=== PATIENT | male | born 1935 | race Caucasian/White ===

== ENCOUNTER 2018-11-09 12:26 | Inpatient (IN) ==
[2018-11-09 13:44] LABS: Basophils # (Auto) 0 K/mcL (0.0-0.3); Basophils % (Auto) 0.1 % (0.0-2.0); Eosinophils # (Auto) 0 K/mcL (0.0-0.7); Eosinophils % (Auto) 0 % (0.0-7.0); Granulocytes % (Auto) 75.1 % (38.0-78.0); Lymphocytes # (Auto) 5.8 K/mcL (1.5-4.8); Lymphocytes % (Auto) 21.3 % (15.5-49.0); Mean Cell Volume 99.1 fL (80.0-100.0); Mean Corpuscular HGB Conc 32.7 g/dL (31.0-36.0); Monocytes % (Auto) 3.5 % (1.0-12.0); Platelet Count 293 K/mcL (140-440); RBC 3.32 M/mcL (4.50-5.90); Red Cell Distribution Width 12.4 % (11.5-14.5)
[2018-11-09 14:02] LABS: ALT/SGPT 39 U/l (0-40); Albumin 3.6 gm/dL (3.2-5.2); Albumin/Globulin Ratio 1.5 (1.0-2.3); Alkaline Phosphatase 55 U/L (39-117); Blood Urea Nitrogen 9 mg/dl (8-23)
[2018-11-09] MEDS ORDERED: 0.9 % SODIUM CHLORIDE 1,000 ML IV ONE (14:05)
[2018-11-09] MEDS ORDERED: 0.9 % SODIUM CHLORIDE 1,000 ML IV SCH (14:15)
--- NOTE | 2018-11-09 14:28 | Emergency Department Note ---
General Adult HPI - General Chief complaint: Cold/Flu Symptoms Stated complaint: cough/cold Time Seen by Provider: 11/09/18 12:52 Source: patient, family Mode of arrival: ambulatory Limitations: no limitations - History of Present Illness HPI Narrative: Patient is an 82-year-old male who presents to the emergency Department today with complaint of cough, malaise, nasal discharge, and slight frontal headache that began a week ago. He went to [facility] 2 days ago, and was suspected to have viral upper respiratory tract infection. He has since went home and felt like his symptoms started to get worse. He denies any shortness of breath, chest pain, or difficulty breathing. He reports that he is coughing up a light green colored product. He has a past medical history of leukemia, and receives treatment at [facility]. He also has a history of hypothyroidism and hypertension. He reports that at home he had a fever of 99 and 100.9. He has been taking guaifenesin and Tylenol for his symptoms. He has not had any nausea, vomiting, or diarrhea. - Related Data Home Medications Medication Instructions Recorded Confirmed Imatinib Mesylate [Gleevec] 600 mg PO DAILY 08/09/17 11/09/18 fluticasone propionate 50 2 spray INTRANASAL QDAY 11/01/18 11/09/18 mcg/actuation nasal spray,suspension levothyroxine 125 mcg capsule 125 mcg PO QDAY 11/01/18 11/09/18 lisinopril 10 1 tab PO QDAY 11/01/18 11/09/18 mg-hydrochlorothiazide 12.5 mg tablet Allergies Allergy/AdvReac Type Severity Reaction Status Date / Time No Known Drug Allergies Allergy Verified 11/09/18 12:29 Review of Systems All systems ED: reviewed and negative except as stated. Past Medical History - Past Medical History Medical history: Reports: hypertension, hypothyroidism, other (Myeloid leukemia) - Social History smoking status: Former smoker Physical Exam Limitations: no limitations General appearance: alert, in no apparent distress Head: atraumatic, normocephalic Eye: Present: PERRL, EOMI, scleral icterus. Absent: conjunctival injection ENT: normal oropharynx, mucous membranes moist Neck: Present: normal inspection, full ROM, trachea midline. Absent: tenderness, lymphadenopathy, thyromegaly Chest: Present: normal inspection, symmetric chest wall rise. Absent: tenderness Respiratory: Present: other (Lungs sounds clear to auscultate with slightly diminished right lower lobe.). Absent: accessory muscle use Cardiovascular: Present: regular rate, normal rhythm, +S1, +S2 Abdominal: Present: soft, normal bowel sounds. Absent: distention, tenderness, guarding, rebound, rigidity, organomegaly Extremities: Present: normal inspection, full ROM, normal capillary refill. Absent: pedal edema, pretibial edema Back: Present: normal inspection, full ROM. Absent: CVA tenderness (R), CVA tenderness (L) Neurological: Present: alert, oriented X3, normal gait Skin: Present: warm, dry, intact, normal color Course Vital Signs Temperature 98.1 F 11/09/18 12:27 Pulse Rate 89 11/09/18 12:27 Respiratory Rate 20 11/09/18 12:27 Blood Pressure 166/67 11/09/18 12:27 Pulse Oximetry (%) 95 11/09/18 12:27 Temperature 98.1 F 11/09/18 12:27 Pulse Rate 80 11/09/18 14:02 Respiratory Rate 22 11/09/18 14:02 Blood Pressure 165/71 11/09/18 14:02 Pulse Oximetry (%) 96 11/09/18 14:02 Medical Decision Making - MDM Narrative Medical decision making narrative: Patient had received CBC and chest x-ray today. The sclerae did appear a little jaundice, and a CMP was ordered. His AST level as elevated at 78. Patient reports that he was taking Tylenol at home for the last week. CBC shows Leukocytosis at 27.1 He has a critical sodium level at 117. He denies excessive water intake. An IV was then started with normal saline at [address] Redd was contacted regarding the hyponatremia and the elevated white count. The radiology report is still pending at this time, but to my review may show some slight infiltrate in the right middle lobe. Patient will receive 500 mg of azithromycin by mouth, and 1 g Rocephin IV. Patient will need to be admitted for the hyponatremia and the pneumonia. - Lab Data Lab results reviewed: Yes I reviewed the patient's lab results. Lab results narrative: Influenza testing is negative. Result diagrams: 11/09/18 13:17 11/09/18 13:17 Lab Results 11/09/18 11/09/18 Range/Units 13:17 13:17 WBC 27.1 H (4.5-11.0) K/mcL RBC 3.32 L (4.50-5.90) M/mcL Hgb 10.8 L (13.5-16.5) g/dL Hct 32.9 L (41.0-55.0) % MCV 99.1 (80.0-100.0) fL MCH 32.4 (26.0-34.0) pg MCHC 32.7 (31.0-36.0) g/dL RDW 12.4 (11.5-14.5) % Plt Count 293 (140-440) K/mcL MPV 9.2 (7.4-10.4) fL Gran % 75.1 (38.0-78.0) % Lymph % (Auto) 21.3 (15.5-49.0) % [place] % (Auto) 3.5 (1.0-12.0) % Eos % (Auto) 0 (0.0-7.0) % Baso % (Auto) 0.1 (0.0-2.0) % Gran # 20.4 H (1.8-8.0) K/mcL Lymph # (Auto) 5.8 H (1.5-4.8) K/mcL [place] # (Auto) 1.0 H (0.1-0.9) K/mcL Eos # (Auto) 0 (0.0-0.7) K/mcL Baso # (Auto) 0 (0.0-0.3) K/mcL Sodium 117 L* (133-145) mmol/L Potassium 3.5 (3.3-5.1) mmol/L Chloride 80 L (96-108) mmol/L Carbon Dioxide 23 (22-30) mmol/L Anion Gap 14.0 (8-16) BUN 9 (8-23) mg/dl Creatinine 0.9 (0.7-1.2) mg/dl GFR Calculation 79 Glucose 152 H (70-105) mg/dL Calcium 8.3 L (8.6-10.4) mg/dl Total Bilirubin 1.2 H (0.0-1.0) mg/dL AST 78 H (0-37) U/l ALT 39 (0-40) U/l Alkaline Phosphatase 55 (39-117) U/L Total Protein 6.0 (5.9-8.4) gm/dL Albumin 3.6 (3.2-5.2) gm/dL Globulin 2.4 (2.2-3.7) gm/dL Albumin/Globulin Ratio 1.5 (1.0-2.3) Disposition Pt seen by STAFF GENETIC COUNSELOR/PA only: Yes Clinical Impression: Hyponatremia, Pneumonia Disposition: Xfer As Inpt ([facility]) Condition: Fair Referrals: Axel Serrano MD [Primary Care Provider] -
[2018-11-09] MEDS ORDERED: AZITHROMYCIN 250 MG TABLET PO ONE (14:38)
[2018-11-09] MEDS ORDERED: cefTRIAXone 1 GM VIAL IV ONE (14:39)
[2018-11-09 15:01] LABS: Appearance,Urine CLEAR; Bacteria,Urine FEW /hpf (0); Bilirubin,Urine NEG (NEG); Color,Urine YELLOW; Glucose,Urine (UA) NORM (NEG); Leukocyte Esterase,Urine NEG /uL (NEG); Mucus,Urine MANY /hpf (0); PH,Urine 7.5 (5.0-9.0); Protein,Urine >=300 mg/dL (NEG); Urine Amorphous Crystals FEW /hpf (0); Urine Blood NEG mg/dL (<0.03); Urine RBC 9 /hpf (0-1); Urine Squamous Epithelial Cell 20 /hpf (0-4); Urine WBC 4 /hpf (0-4)
[2018-11-09] MEDS: 0.9 % SODIUM CHLORIDE 1,000 ML IV SCH ×3 (15:11→21:55)
[2018-11-09 15:12] LABS: Lymphocytes % 14 % (15-49); Monocytes % (Manual) 6 % (1-12); Platelet Estimate NORMAL (NORMAL); RBC Morphology NORMAL (NORMAL); Segmented Neutrophils % 80 % (38-78)
--- NOTE | 2018-11-09 15:15 | Internal Med History&Physical ---
Medical - H&P: HPI Patient information: Note initiated : 11/09/18 at 3:12 pm Service Date, if different from initiated Date: [] Patient: Frederick Arredondo a 82 y/o M admitted on for cough/cold. Chief Complaint: [] History of present illness: Mr. Arredondo is a 82 year old M With a 2-day history of weakness fatigue malaise productive cough of yellow sputum mild headaches with a T-max of 100.9 per his . Was recently at walk-in clinic and was diagnosed with upper respiratory tract infection sent home with Mucinex. Patient feels his symptoms have not improved. Per his he has poor oral intake and per the patient he says his urination has decreased slightly. Denies any chest pain or shortness of breath He has history of hypothyroidism was on medication years ago and then was stopped for a few years and then he was started back up by his primary care provider Dr. Serrano several months ago, with levothyroxine. He was also started on a blood pressure medication several months ago, lisinopril hydrochlorothiazide. 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 In the ED he was found to have leukocytosis, mildly elevated pro-calcitonin. Chest x-ray with questionable infiltrate. And is also found to have a sodium of 117. Review of Systems: Pertinent positives as above. Denies chills/nausea/vomiting/chest or abdominal pain/dyspnea/constipation . Remaining 10 point review of systems reviewed negative Medical - H&P: PMH Medical history: Past medical history: CML follows with Dr. Cason on Gleevec Chronic anemia Hypothyroidism recently started back on medication several months ago Hypertension recently diagnosed and started on medication 2 months ago Past surgical history: Prostatectomy tonsillectomy Family history: Mother mother is healthy, father had CAD Social history: Patient quit smoking 28 years of age Drinks alcohol occasionally Lives at home with his Medical - H&P: Meds Home Medications Medication Instructions Recorded Confirmed Type Imatinib Mesylate [Gleevec] 600 mg PO DAILY 08/09/17 11/09/18 History fluticasone propionate 50 2 spray INTRANASAL QDAY 11/01/18 11/09/18 History mcg/actuation nasal spray,suspension levothyroxine 125 mcg capsule 125 mcg PO QDAY 11/01/18 11/09/18 History lisinopril 10 1 tab PO QDAY 11/01/18 11/09/18 History mg-hydrochlorothiazide 12.5 mg tablet Allergies Allergy/AdvReac Type Severity Reaction Status Date / Time No Known Drug Allergies Allergy Verified 11/09/18 12:29 Medical - H&P: Exam - Constitutional Vitals: Temp Pulse Resp BP Pulse Ox 98.1 F 80 22 165/71 96 11/09/18 12:27 11/09/18 14:02 11/09/18 14:02 11/09/18 14:02 11/09/18 14:02 Exam: General: Alert, Awake, No acute Distress Eyes/N/T: EOMI, PEERL, DMM Head/Neck: neck supple, normocephalic atraumatic CV: RRR, No murmurs, normal s1/s2 Pulm: Bilateral expiratory rhonchi, no wheezing abd: soft, nontender, +BS x4 Ext: no clubbing/cyanosis/edema Neuro: Alert, no focal deficits, moves all extremities, CN 2-12 grossly intact, symmetrical strength b/l upper/lower, sensations intact b/l upper/lower Skin: warm/dry Medical - H&P: Reslt - Labs CBC & Chem 7: 11/09/18 13:17 11/09/18 19:15 Labs: Short CBC 11/09/18 Range/Units 13:17 WBC 27.1 H (4.5-11.0) K/mcL Hgb 10.8 L (13.5-16.5) g/dL Hct 32.9 L (41.0-55.0) % Plt Count 293 (140-440) K/mcL BMP 11/09/18 13:17 Sodium 117 L* Potassium 3.5 Chloride 80 L Carbon Dioxide 23 BUN 9 Creatinine 0.9 Glucose 152 H Calcium 8.3 L Liver Function 11/09/18 Range/Units 13:17 Total Bilirubin 1.2 H (0.0-1.0) mg/dL AST 78 H (0-37) U/l ALT 39 (0-40) U/l Alkaline Phosphatase 55 (39-117) U/L Albumin 3.6 (3.2-5.2) gm/dL Urine 11/09/18 Range/Units 14:39 Urine Color Yellow Urine Appearance Clear Urine pH 7.5 (5.0-9.0) Ur Specific [place] 1.020 (1.000-1.035) Urine Protein >=300 (NEG) mg/dL Urine Glucose (UA) Norm (NEG) mg/dL - Impressions Chest x-ray with the possible infiltrate left lower lobe, prominent pulmonary vasculature, Medical - H&P: A/P - Narrative A/P Narrative: A: *Hyponatremia: Secondary to likely hydrochlorothiazide and poor oral intake; DDx include SIADH *CAP: lactate wnl *Gen weakness: *CML: follows with Dr. Cason on [facility] *HTN: Recently started on combination of lisinopril and hydrochlorothiazide -Elevated on admit *Hypothyroidism: *Chronic anemia: * P: -NS IV fluids -Serial sodium levels -Urine studies and osmolality pending, TSH -IV antibiotics, trend pro-calcitonin, pending sputum and blood culture -Viral respiratory panel -Continue lisinopril, as needed IV medication. Stopped hydrochlorothiazide - -ppx: Lovenox
--- NOTE | 2018-11-09 16:09 | XRay Report ---
CLINICAL INFORMATION: cough COMPARISON: 05/31/2013 FINDINGS: Heart size, mediastinum and pulmonary vessels are normal. Small vague infiltrate present in the right midlung which is new. Possible vague bibasilar infiltrates. No effusions. Right diaphragm is mildly elevated - new finding. Small right pleural effusion noted IMPRESSION: Small right midlung and bibasilar infiltrates Moderate elevation right diaphragm - new Interpreted and Authenticated by: Chepe Bustos 11/09/18
[2018-11-09 16:28] LABS: Uric Acid 2.9 mg/dL (2.5-8.0)
[2018-11-09] MEDS ORDERED: ONDANSETRON 4 MG/2 ML VIAL IV PRN (16:33)
[2018-11-09] MEDS ORDERED: PROCHLORPERAZINE 10 MG/2 ML VIAL IV PRN (16:33)
[2018-11-09] MEDS ORDERED: POTASSIUM CHLORIDE 20 MEQ TABLET PO PRN ×2 (16:33)
[2018-11-09] MEDS ORDERED: ACETAMINOPHEN 325 MG TABLET PO PRN (16:33)
[2018-11-09] MEDS ORDERED: MAGNESIUM SULFATE 2 GM/50 ML BAG IV PRN (16:33)
[2018-11-09] MEDS ORDERED: POLYETHYLENE GLYCOL 3350 17 GM PACKET PO PRN (16:33)
[2018-11-09] MEDS ORDERED: POTASSIUM CHLORIDE 40 MEQ in DEXTROSE 5% IN WATER 500 ML IV PRN (16:33)
[2018-11-09] MEDS ORDERED: IPRATROPIUM/ALBUTEROL 3 ML AMPUL.NEB NEB PRN (16:33)
[2018-11-09] MEDS: CEFEPIME 2 GM VIAL IV SCH (16:56)
[2018-11-09] MEDS: AZITHROMYCIN 500 MG in DEXTROSE 5% IN WATER 250 ML IV SCH (16:57)
--- NOTE | 2018-11-09 17:25 | Emergency Department Note ---
ED Note Addendum Note Addendum: I reviewed this case with the mid-level provider and agree with the assessment and plan.
[2018-11-09] MEDS: PHOSPHORUS 250 MG TABLET PO SCH ×2 (18:49→21:41)
[2018-11-09 20:38] LABS: Blood Urea Nitrogen 9 mg/dl (8-23)
[2018-11-09] MEDS ORDERED: SODIUM CHLORIDE 1 GM TABLET PO ONE (20:41)
[2018-11-09] MEDS: 0.9 % SODIUM CHLORIDE 10 ML SYRINGE IV SCH (21:42)
[2018-11-10 00:12] LABS: Blood Urea Nitrogen 9 mg/dl (8-23)
[2018-11-10] MEDS: 0.9 % SODIUM CHLORIDE 1,000 ML IV SCH ×2 (00:32→04:51)
[2018-11-10] MEDS: CEFEPIME 2 GM VIAL IV SCH ×3 (00:32→16:23)
[2018-11-10] MEDS: hydrALAZINE 20 MG/ML VIAL IV PRN (03:49)
[2018-11-10] MEDS: 0.9 % SODIUM CHLORIDE 10 ML SYRINGE IV SCH ×2 (04:58→16:24)
[2018-11-10 05:41] LABS: Basophils # (Auto) 0 K/mcL (0.0-0.3); Basophils % (Auto) 0.1 % (0.0-2.0); Eosinophils # (Auto) 0 K/mcL (0.0-0.7); Eosinophils % (Auto) 0.1 % (0.0-7.0); Granulocytes % (Auto) 68.3 % (38.0-78.0); Lymphocytes # (Auto) 6.8 K/mcL (1.5-4.8); Lymphocytes % (Auto) 26.8 % (15.5-49.0); Monocytes # (Auto) 1.2 K/mcL (0.1-0.9); Monocytes % (Auto) 4.7 % (1.0-12.0); Platelet Count 314 K/mcL (140-440); RBC 2.99 M/mcL (4.50-5.90); Red Cell Distribution Width 12.3 % (11.5-14.5)
[2018-11-10 06:31] LABS: ALT/SGPT 32 U/l (0-40); Albumin 2.8 gm/dL (3.2-5.2); Albumin/Globulin Ratio 1.3 (1.0-2.3); Alkaline Phosphatase 46 U/L (39-117); Bilirubin,Direct < 0.2 mg/dL (0.0-0.3); Blood Urea Nitrogen 8 mg/dl (8-23); C-Reactive Protein 6.3 mg/dl (0.0-0.8); Gamma Glutamyl Transpeptidase 9 U/L (8-61); Uric Acid 2.7 mg/dL (2.5-8.0)
[2018-11-10] MEDS ORDERED: OSELTAMIVIR PHOSPHATE 75 MG CAPSULE PO ONE (07:06)
--- NOTE | 2018-11-10 07:08 | Internal Med Progress Note ---
Medical - PN: Subj Patient information: Note initiated : 11/10/18 at 7:03 am Service Date, if different from initiated Date: [] Patient: Frederick Arredondo a 82 y/o M admitted on 11/09/18 for cough/cold. Chief Complaint: [] Interval history: Mr. Arredondo is a 82 year old M With a 2-day history of weakness fatigue malaise productive cough of yellow sputum mild headaches with a T-max of 100.9 per his . Was recently at walk-in clinic and was diagnosed with upper respiratory tract infection sent home with Mucinex. Patient feels his symptoms have not improved. Per his he has poor oral intake and per the patient he says his urination has decreased slightly. Denies any chest pain or shortness of breath He has history of hypothyroidism was on medication years ago and then was stopped for a few years and then he was started back up by his primary care provider Dr. Serrano several months ago, with levothyroxine. He was also started on a blood pressure medication several months ago, lisinopril hydrochlorothiazide. 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 In the ED he was found to have leukocytosis, mildly elevated pro-calcitonin. Chest x-ray with questionable infiltrate. And is also found to have a sodium of 117. 3/18 12. No overnight events. Has productive cough. Denies dyspnea. Monitoring sodium closely. Review of Systems: denies headache/fever/chills/nausea/vomiting/chest or abdominal pain/dyspnea/diarrhea. Otherwise see above. - Constitutional Vitals: Vital Signs Temp Pulse Resp BP Pulse Ox 98.1 F 87 18 151/62 97 11/10/18 03:46 11/09/18 17:00 11/10/18 03:46 11/10/18 04:52 11/10/18 03:46 Period Temp Pulse Resp BP Sys/Oquendo Pulse Ox Last 24 Hr 98.1 F-100.6 F 80-89 18-22 147-174/62-89 93-98 Intake and Output 11/09/18 11/10/18 11/10/18 21:59 05:59 13:59 Intake Total 1000 2227 Output Total 300 Balance 1000 1927 Weight 87.543 kg Intake & Output: Intake & Output 11/09/18 11/10/18 11/10/18 21:59 05:59 13:59 Intake Total 1000 2227 Output Total 300 Balance 1000 1927 Weight 87.543 kg Intake: IV 1000 1867 Sodium Chloride 0.9% 1,000 ml @ 1000 1867 150 mls/hr IV .Q6H40M [facility] Rx#: [id number] Oral 360 Output: Urine Catheter Amount 300 Straight 300 Other: Meal Dinner Percent of Meal Consumed 100% Feeding Ability Independent Urine Color Straight Dark Yellow Exam: General: Alert, Awake, No acute Distress Eyes/N/T: EOMI, Head/Neck: neck supple, CV: RRR, No murmurs, Pulm: Bilateral expiratory rhonchi and mild b/l wheezing abd: soft, nontender, +BS x4 Ext: no clubbing/cyanosis/edema Neuro: Alert, no focal deficits, moves all extremities, Skin: warm/dry Medical - PN: Obj Da - Labs CBC & Chem 7: 11/10/18 03:19 11/10/18 03:19 Labs: Abnormal Lab Results 11/10/18 11/10/18 11/09/18 03:19 03:19 23:13 WBC 25.3 H RBC 2.99 L Hgb 9.8 L Hct 29.6 L Gran # 17.3 H Lymph # (Auto) 6.8 H [place] # (Auto) 1.2 H Seg Neutrophils % Lymphocytes % ESR Sodium 123 L 120 L Chloride 89 L 86 L Carbon Dioxide Glucose 122 H 138 H Osmolality Calcium 7.6 L 7.3 L Phosphorus 2.2 L Total Bilirubin AST 58 H Lactate Dehydrogenase 287 H C-Reactive Protein 6.3 H Total Protein 4.9 L Albumin 2.8 L Globulin 2.1 L Urine Ketones Urine Urobilinogen Urine RBC Ur Squamous Epith Cells Amorphous Crystals Urine Bacteria Urine Mucus 11/09/18 11/09/18 11/09/18 19:15 14:58 14:58 WBC RBC Hgb Hct Gran # Lymph # (Auto) [place] # (Auto) Seg Neutrophils % Lymphocytes % ESR Sodium 117 L* Chloride 83 L Carbon Dioxide 21 L Glucose 140 H Osmolality 243 L Calcium 7.8 L Phosphorus 1.6 L Total Bilirubin AST Lactate Dehydrogenase C-Reactive Protein Total Protein Albumin Globulin Urine Ketones Urine Urobilinogen Urine RBC Ur Squamous Epith Cells Amorphous Crystals Urine Bacteria Urine Mucus 11/09/18 11/09/18 11/09/18 14:39 13:17 13:17 WBC RBC Hgb Hct Gran # Lymph # (Auto) [place] # (Auto) Seg Neutrophils % 80 H Lymphocytes % 14 L ESR Sodium Chloride Carbon Dioxide Glucose Osmolality Calcium Phosphorus Total Bilirubin AST Lactate Dehydrogenase C-Reactive Protein 7.5 H Total Protein Albumin Globulin Urine Ketones 15/1+ A Urine Urobilinogen 2.0 A Urine RBC 9 H Ur Squamous Epith Cells 20 H Amorphous Crystals Few A Urine Bacteria Few A Urine Mucus Many A 11/09/18 11/09/18 11/09/18 13:17 13:17 13:17 WBC 27.1 H RBC 3.32 L Hgb 10.8 L Hct 32.9 L Gran # 20.4 H Lymph # (Auto) 5.8 H [place] # (Auto) 1.0 H Seg Neutrophils % Lymphocytes % ESR 24 H Sodium 117 L* Chloride 80 L Carbon Dioxide Glucose 152 H Osmolality Calcium 8.3 L Phosphorus Total Bilirubin 1.2 H AST 78 H Lactate Dehydrogenase C-Reactive Protein Total Protein Albumin Globulin Urine Ketones Urine Urobilinogen Urine RBC Ur Squamous Epith Cells Amorphous Crystals Urine Bacteria Urine Mucus Meds: Medications Acetaminophen (Tylenol) 650 mg PO Q6HP PRN PRN Reason: PAIN/FEVER > 101 Last Admin: 11/09/18 21:41 Dose: 650 mg Documented by: Albuterol/Ipratropium (Duoneb) 3 ml NEB Q4HP PRN PRN Reason: Shortness Of Breath Cefepime HCl (Maxipime) 2 gm IV Q8H [facility]; Protocol Last Admin: 11/10/18 00:32 Dose: 2 gm Documented by: Enoxaparin Sodium (Lovenox) 40 mg SQ DAILY [facility] Fluticasone Propionate (Flonase) 2 spray NS QDAY [facility] Hydralazine HCl (Apresoline) 0 mg IV Q4-6HP PRN PRN Reason: Hypertension Last Admin: 11/10/18 03:49 Dose: 10 mg Documented by: Sodium Chloride (Sodium Chloride 0.9%) 1,000 mls @ 150 mls/hr IV .Q6H40M [facility] Last Admin: 11/10/18 04:51 Dose: 150 mls/hr Documented by: Azithromycin 500 mg/ Dextrose 250 mls @ 250 mls/hr IV Q24H [facility] Stop: 11/11/18 17:32 Last Admin: 11/09/18 16:57 Dose: Not Given Documented by: Potassium Chloride 40 meq/ (Dextrose) 520 mls @ 130 mls/hr IV ONCE PRN PRN Reason: Potassium < 3 Magnesium Sulfate (Magnesium Sulfate) 2 gm in 50 mls @ 50 mls/hr IV ONCE PRN PRN Reason: Magnesium </= 1.6 Levothyroxine Sodium (Synthroid) 125 mcg PO QAMAC [facility] Lisinopril (Zestril) 10 mg PO DAILY [facility] Ondansetron HCl (Zofran) 4 mg IV Q4HP PRN PRN Reason: Nausea And Vomiting Polyethylene Glycol (Miralax) 17 gm PO DAILYP PRN PRN Reason: Constipation Potassium Chloride (Kdur) 40 meq PO ONCE PRN PRN Reason: Potssium is 3-3.5 Potassium Chloride (Kdur) 40 meq PO ONCE PRN PRN Reason: Potassium < 3 Prochlorperazine (Compazine) 10 mg IV Q6HP PRN PRN Reason: Nausea And Vomiting Sodium Chloride (Saline Flush) 10 ml IV Q8 [facility] Last Admin: 11/10/18 04:58 Dose: Not Given Documented by: Sodium Phosphate (Kphos 250 Neutral) 250 mg PO QID [facility] Stop: 11/10/18 13:01 Last Admin: 11/09/18 21:41 Dose: 250 mg Documented by: Medical - PN: A/P - Time Spent With Patient Total time spent is greater than 50% in coordination of care (as documented) at patient's floor/unit and/or counseling patient: - Narrative A/P Narrative: A: *Secondary Bacterial PNA: 2/2 Influenza A -PCT improving *Influenza A: *Hyponatremia: Secondary to likely hydrochlorothiazide and poor oral intake *Gen weakness: *CML: follows with Dr. Cason on gleevec *HTN: Recently started on combination of lisinopril and hydrochlorothiazide -Elevated on admit *Hypothyroidism: *Chronic anemia: * P: -Tamiflu -Azithro/Cefepime, -pending SC/BC -NS IV fluids, temp held and given small volume of D5W, -Serial sodium levels -Continue lisinopril (increase), as needed IV medication. Stopped hydrochlorothiazide - -ppx: Lovenox Medical - PN: Qual - VTE Deep Vein Thrombosis/Pulmonary Embolism Present on Admission: No
[2018-11-10] MEDS ORDERED: DEXTROSE 5% IV SCH (07:15)
[2018-11-10] MEDS ORDERED: [UNRECOGNIZED DRUG - OTHER] IV SCH (07:15)
[2018-11-10] MEDS: LEVOTHYROXINE 125 MCG TABLET PO SCH (07:15)
[2018-11-10] MEDS: DEXTROSE 5% IN WATER 1,000 ML IV SCH ×2 (07:31→16:23)
--- NOTE | 2018-11-10 07:52 | XRay Report ---
CLINICAL INFORMATION: cough COMPARISON: 11/09/2018 FINDINGS: Heart is at the upper limits of normal in size. Mediastinum and pulmonary vessels are unremarkable. Small right basilar mid lung infiltrate as progressed. Elevation right diaphragm seen - as before. There is a small right pleural effusion IMPRESSION: Small patchy right mid/basilar infiltrate worsening slightly Elevated right diaphragm Interpreted and Authenticated by: Chepe Bustos 11/10/18
[2018-11-10] MEDS ORDERED: LISINOPRIL 10 MG TABLET PO SCH (09:00)
[2018-11-10] MEDS: ENOXAPARIN 40 MG/0.4 ML SYRINGE SQ SCH (09:03)
[2018-11-10] MEDS: PHOSPHORUS 250 MG TABLET PO SCH ×2 (09:04→16:24)
[2018-11-10] MEDS: LISINOPRIL 10 MG TABLET PO SCH (09:04)
[2018-11-10 10:22] LABS: Blood Urea Nitrogen 9 mg/dl (8-23)
[2018-11-10 14:29] LABS: Blood Urea Nitrogen 11 mg/dl (8-23)
[2018-11-10] MEDS ORDERED: PHOSPHORUS 250 MG TABLET PO ONE (16:04)
[2018-11-10] MEDS: AZITHROMYCIN 500 MG in DEXTROSE 5% IN WATER 250 ML IV SCH (16:24)
[2018-11-10] MEDS ORDERED: DEXTROSE 5% IN WATER 1,000 ML IV SCH (16:50)
[2018-11-10 19:27] LABS: Blood Urea Nitrogen 10 mg/dl (8-23)
[2018-11-10] MEDS ORDERED: SODIUM CHLORIDE 1 GM TABLET PO ONE (20:11)
[2018-11-10] MEDS: OSELTAMIVIR PHOSPHATE 75 MG CAPSULE PO SCH (20:21)
[2018-11-11] MEDS: 0.9 % SODIUM CHLORIDE 10 ML SYRINGE IV SCH ×4 (00:24→21:24)
[2018-11-11] MEDS: CEFEPIME 2 GM VIAL IV SCH ×3 (00:37→16:10)
[2018-11-11 06:48] LABS: Basophils # (Auto) 0.1 K/mcL (0.0-0.3); Basophils % (Auto) 0.3 % (0.0-2.0); Eosinophils # (Auto) 0.1 K/mcL (0.0-0.7); Eosinophils % (Auto) 0.5 % (0.0-7.0); Lymphocytes % (Auto) 35.3 % (15.5-49.0); Mean Cell Volume 100.3 fL (80.0-100.0); Mean Corpuscular HGB Conc 32.5 g/dL (31.0-36.0); Monocytes % (Auto) 4.9 % (1.0-12.0); Platelet Count 367 K/mcL (140-440); RBC 2.83 M/mcL (4.50-5.90); Red Cell Distribution Width 12.7 % (11.5-14.5)
[2018-11-11 07:13] LABS: ALT/SGPT 36 U/l (0-40); Albumin 2.8 gm/dL (3.2-5.2); Albumin/Globulin Ratio 1.3 (1.0-2.3); Alkaline Phosphatase 61 U/L (39-117); Bilirubin,Direct 0.2 mg/dL (0.0-0.3); Blood Urea Nitrogen 10 mg/dl (8-23); Gamma Glutamyl Transpeptidase 11 U/L (8-61); Uric Acid 2.5 mg/dL (2.5-8.0)
[2018-11-11] MEDS: OSELTAMIVIR PHOSPHATE 75 MG CAPSULE PO SCH ×2 (08:11→21:24)
[2018-11-11] MEDS: LEVOTHYROXINE 125 MCG TABLET PO SCH (08:12)
[2018-11-11] MEDS: FLUTICASONE PROPIONATE SPRAY.NAS NS SCH (08:12)
[2018-11-11] MEDS: LISINOPRIL 10 MG TABLET PO SCH (08:12)
[2018-11-11] MEDS: ENOXAPARIN 40 MG/0.4 ML SYRINGE SQ SCH (08:12)
[2018-11-11] MEDS ORDERED: 0.9 % SODIUM CHLORIDE 1,000 ML IV SCH (08:15)
[2018-11-11] MEDS ORDERED: IMATINIB MESYLATE 600 MG PO SCH (09:00)
[2018-11-11] MEDS ORDERED: MAGNESIUM SULFATE 2 GM/50 ML BAG IV ONE (11:35)
[2018-11-11] MEDS ORDERED: POTASSIUM CHLORIDE 20 MEQ PACKET PO ONE (11:35)
--- NOTE | 2018-11-11 11:56 | Internal Med Progress Note ---
Medical - PN: Subj Patient information: Note initiated : 11/11/18 at 11:53 am Service Date, if different from initiated Date: [] Patient: Frederick Arredondo a 82 y/o M admitted on 11/09/18 for cough/cold. Chief Complaint: [] Interval history: Mr. Arredondo is a 82 year old M With a 2-day history of weakness fatigue malaise productive cough of yellow sputum mild headaches with a T-max of 100.9 per his . Was recently at walk-in clinic and was diagnosed with upper respiratory tract infection sent home with Mucinex. Patient feels his symptoms have not improved. Per his he has poor oral intake and per the patient he says his urination has decreased slightly. Denies any chest pain or shortness of breath He has history of hypothyroidism was on medication years ago and then was stopped for a few years and then he was started back up by his primary care provider Dr. Serrano several months ago, with levothyroxine. He was also started on a blood pressure medication several months ago, lisinopril hydrochlorothiazide. 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 In the ED he was found to have leukocytosis, mildly elevated pro-calcitonin. Chest x-ray with questionable infiltrate. And is also found to have a sodium of 117. 11/10 12. No overnight events. Has productive cough. Denies dyspnea. Monitoring sodium closely. 11/11 Pt seen examined, no acute issues, still feels quite weak, around 10-20 percent better since admissin sodium level stable, improving slowly, repeat labs this afternoon. repeat CXR , damien crackles noted one xam today pt educated regarding pulm toilet, incentive spirometery. Pertinent ROS: Denies headache, dizziness Denies chest pain, palpitations cough and shortness of breath is improving. Denies abdominal pain, nausea or vomiting. - Constitutional Vitals: Vital Signs Temp Pulse Resp BP Pulse Ox 97.6 F 76 18 134/65 96 11/11/18 07:52 11/11/18 07:52 11/11/18 07:52 11/11/18 07:52 11/11/18 07:52 Period Temp Pulse Resp BP Sys/Oquendo Pulse Ox Last 24 Hr 97.6 F-98.6 F 74-80 14-18 134-156/57-71 94-96 Intake and Output 11/10/18 11/11/18 11/11/18 21:59 05:59 13:59 Intake Total 2121 Balance 2121 Weight 199 lb 8 oz Intake & Output: Intake & Output 11/10/18 11/11/18 11/11/18 21:59 05:59 13:59 Intake Total 2121 Balance 2121 Weight 199 lb 8 oz Intake: IV 1522 Zithromax 500 mg In Dextrose 5% 250 in Water 250 ml @ 250 mls/hr IV Q24H [facility] Rx#:[id number] Dextrose 5% in Water 1,000 ml @ 1069 125 mls/hr IV .Q8H [facility] Rx#: [id number] Oral 600 Other: Meal Dinner Percent of Meal Consumed 100% Feeding Ability Assist with Tray Set Up Urine Appearance Clear Urine Color Bright Yellow # Voids 1 1 Exam: Constitutional; Afebrile, cooperative, alert, not in distress. Respiratory system: Air Entry equal on both sides, bibasilar crackles, no wheezing. CVS- Rate rhythm regular, S1,S2 heard, no gallop, no rub. Abdomen- Soft nontender abdomen, no organomegaly, no tenderness, no guarding or rigidity, SLD TEACHER- AOOx3, moving all extremities, no gross focal deficit noted. Medical - PN: Obj Da - Labs CBC & Chem 7: 11/11/18 03:30 11/11/18 03:30 Labs: Abnormal Lab Results 11/11/18 11/11/18 11/10/18 03:30 03:30 18:06 WBC 19.7 H RBC 2.83 L Hgb 9.2 L Hct 28.4 L MCV 100.3 H Gran # 11.6 H Lymph # (Auto) 7.0 H [place] # (Auto) 1.0 H Seg Neutrophils % Lymphocytes % ESR Sodium 124 L 123 L Chloride 89 L 89 L Carbon Dioxide 21 L Glucose 129 H 163 H Osmolality Calcium 7.7 L 7.7 L Phosphorus 2.2 L Total Bilirubin AST 51 H Lactate Dehydrogenase 403 H C-Reactive Protein Total Protein 4.9 L Albumin 2.8 L Globulin 2.1 L Urine Ketones Urine Urobilinogen Urine RBC Ur Squamous Epith Cells Amorphous Crystals Urine Bacteria Urine Mucus Ur Strep pneumoniae Ag 11/10/18 11/10/18 11/10/18 13:15 09:08 03:19 WBC RBC Hgb Hct MCV Gran # Lymph # (Auto) [place] # (Auto) Seg Neutrophils % Lymphocytes % ESR Sodium 124 L 123 L 123 L Chloride 90 L 90 L 89 L Carbon Dioxide Glucose 138 H 172 H 122 H Osmolality Calcium 7.8 L 7.7 L 7.6 L Phosphorus 2.2 L Total Bilirubin AST 58 H Lactate Dehydrogenase 287 H C-Reactive Protein 6.3 H Total Protein 4.9 L Albumin 2.8 L Globulin 2.1 L Urine Ketones Urine Urobilinogen Urine RBC Ur Squamous Epith Cells Amorphous Crystals Urine Bacteria Urine Mucus Ur Strep pneumoniae Ag 11/10/18 11/09/18 11/09/18 03:19 23:13 21:16 WBC 25.3 H RBC 2.99 L Hgb 9.8 L Hct 29.6 L MCV Gran # 17.3 H Lymph # (Auto) 6.8 H [place] # (Auto) 1.2 H Seg Neutrophils % Lymphocytes % ESR Sodium 120 L Chloride 86 L Carbon Dioxide Glucose 138 H Osmolality Calcium 7.3 L Phosphorus Total Bilirubin AST Lactate Dehydrogenase C-Reactive Protein Total Protein Albumin Globulin Urine Ketones Urine Urobilinogen Urine RBC Ur Squamous Epith Cells Amorphous Crystals Urine Bacteria Urine Mucus Ur Strep pneumoniae Ag Positive A 11/09/18 11/09/18 11/09/18 19:15 14:58 14:58 WBC RBC Hgb Hct MCV Gran # Lymph # (Auto) [place] # (Auto) Seg Neutrophils % Lymphocytes % ESR Sodium 117 L* Chloride 83 L Carbon Dioxide 21 L Glucose 140 H Osmolality 243 L Calcium 7.8 L Phosphorus 1.6 L Total Bilirubin AST Lactate Dehydrogenase C-Reactive Protein Total Protein Albumin Globulin Urine Ketones Urine Urobilinogen Urine RBC Ur Squamous Epith Cells Amorphous Crystals Urine Bacteria Urine Mucus Ur Strep pneumoniae Ag 11/09/18 11/09/18 11/09/18 14:39 13:17 13:17 WBC RBC Hgb Hct MCV Gran # Lymph # (Auto) [place] # (Auto) Seg Neutrophils % 80 H Lymphocytes % 14 L ESR Sodium Chloride Carbon Dioxide Glucose Osmolality Calcium Phosphorus Total Bilirubin AST Lactate Dehydrogenase C-Reactive Protein 7.5 H Total Protein Albumin Globulin Urine Ketones 15/1+ A Urine Urobilinogen 2.0 A Urine RBC 9 H Ur Squamous Epith Cells 20 H Amorphous Crystals Few A Urine Bacteria Few A Urine Mucus Many A Ur Strep pneumoniae Ag 11/09/18 11/09/18 11/09/18 13:17 13:17 13:17 WBC 27.1 H RBC 3.32 L Hgb 10.8 L Hct 32.9 L MCV Gran # 20.4 H Lymph # (Auto) 5.8 H [place] # (Auto) 1.0 H Seg Neutrophils % Lymphocytes % ESR 24 H Sodium 117 L* Chloride 80 L Carbon Dioxide Glucose 152 H Osmolality Calcium 8.3 L Phosphorus Total Bilirubin 1.2 H AST 78 H Lactate Dehydrogenase C-Reactive Protein Total Protein Albumin Globulin Urine Ketones Urine Urobilinogen Urine RBC Ur Squamous Epith Cells Amorphous Crystals Urine Bacteria Urine Mucus Ur Strep pneumoniae Ag Meds: Medications Acetaminophen (Tylenol) 650 mg PO Q6HP PRN PRN Reason: PAIN/FEVER > 101 Last Admin: 11/09/18 21:41 Dose: 650 mg Documented by: Albuterol/Ipratropium (Duoneb) 3 ml NEB Q4HP PRN PRN Reason: Shortness Of Breath Cefepime HCl (Maxipime) 2 gm IV Q8H [facility]; Protocol Last Admin: 11/11/18 08:12 Dose: 2 gm Documented by: Enoxaparin Sodium (Lovenox) 40 mg SQ DAILY [facility] Last Admin: 11/11/18 08:12 Dose: 40 mg Documented by: Fluticasone Propionate (Flonase) 2 spray NS QDAY [facility] Last Admin: 11/11/18 08:12 Dose: Not Given Documented by: Hydralazine HCl (Apresoline) 0 mg IV Q4-6HP PRN PRN Reason: Hypertension Last Admin: 11/10/18 03:49 Dose: 10 mg Documented by: Azithromycin 500 mg/ Dextrose 250 mls @ 250 mls/hr IV Q24H [facility] Stop: 11/11/18 17:32 Last Infusion: 11/10/18 18:30 Dose: Infused Documented by: Potassium Chloride 40 meq/ (Dextrose) 520 mls @ 130 mls/hr IV ONCE PRN PRN Reason: Potassium < 3 Magnesium Sulfate (Magnesium Sulfate) 2 gm in 50 mls @ 50 mls/hr IV ONCE PRN PRN Reason: Magnesium </= 1.6 Sodium Chloride (Sodium Chloride 0.9%) 1,000 mls @ 75 mls/hr IV .[id number] [facility] Last Admin: 11/11/18 08:45 Dose: 75 mls/hr Documented by: Magnesium Sulfate (Magnesium Sulfate) 2 gm in 50 mls @ 50 mls/hr IV ONCE ONE Stop: 11/11/18 12:34 Last Admin: 11/11/18 11:52 Dose: 50 mls/hr Documented by: Levothyroxine Sodium (Synthroid) 125 mcg PO QAMAC [facility] Last Admin: 11/11/18 08:12 Dose: 125 mcg Documented by: Lisinopril (Zestril) 20 mg PO DAILY [facility] Last Admin: 11/11/18 08:12 Dose: 20 mg Documented by: Ondansetron HCl (Zofran) 4 mg IV Q4HP PRN PRN Reason: Nausea And Vomiting Oseltamivir Phosphate (Tamiflu) 75 mg PO BID [facility] Last Admin: 11/11/18 08:11 Dose: 75 mg Documented by: Polyethylene Glycol (Miralax) 17 gm PO DAILYP PRN PRN Reason: Constipation Potassium Chloride (Kdur) 40 meq PO ONCE PRN PRN Reason: Potssium is 3-3.5 Potassium Chloride (Kdur) 40 meq PO ONCE PRN PRN Reason: Potassium < 3 Prochlorperazine (Compazine) 10 mg IV Q6HP PRN PRN Reason: Nausea And Vomiting Sodium Chloride (Saline Flush) 10 ml IV Q8 [facility] Last Admin: 11/11/18 05:39 Dose: 10 ml Documented by: Medical - PN: A/P - Time Spent With Patient Total time spent is greater than 50% in coordination of care (as documented) at patient's floor/unit and/or counseling patient: - Narrative A/P Narrative: A: *Secondary Bacterial PNA: 2/2 Influenza A -PCT improving *Influenza A: *Hyponatremia: Secondary to likely hydrochlorothiazide and poor oral intake *Gen weakness: *CML: follows with Dr. Cason on gleevec, resume gleevec *HTN: Recently started on combination of lisinopril and hydrochlorothiazide -Elevated on admit *Hypothyroidism: *Chronic anemia: * P: -Tamiflu -Azithro/Cefepime, -pending SC/BC, neg growth so far, -NS IV fluids, trend sodium,, -Serial sodium levels -Continue lisinopril (increase), as needed IV medication. Stopped hydrochlorothiazide -repeat cxr today OT/PT eval -xfer to med surg status if remains stable. -ppx: Lovenox Medical - PN: Qual - VTE Deep Vein Thrombosis/Pulmonary Embolism Present on Admission: No
[2018-11-11] MEDS: IMATINIB MESYLATE 400 MG PO SCH (12:12)
--- NOTE | 2018-11-11 13:49 | XRay Report ---
CLINICAL INFORMATION: Pneumonia and CHF COMPARISON: 11/10/2018 FINDINGS: Heart size, mediastinum and pulmonary vessels are now normal. Small right basilar infiltrate has improved. Elevated right diaphragm seen - as before. IMPRESSION: Interval resolution in CHF Small right basilar infiltrate - improved Interpreted and Authenticated by: Chepe Bustos 11/11/18
[2018-11-11 15:37] LABS: Blood Urea Nitrogen 11 mg/dl (8-23)
[2018-11-11] MEDS ORDERED: FUROSEMIDE 20 MG/2 ML VIAL IV ONE (15:48)
[2018-11-11] MEDS: SODIUM CHLORIDE 1 GM TABLET PO SCH ×2 (16:10→21:26)
[2018-11-11] MEDS: AZITHROMYCIN 500 MG in DEXTROSE 5% IN WATER 250 ML IV SCH (16:10)
[2018-11-11 22:05] LABS: Blood Urea Nitrogen 12 mg/dl (8-23)
[2018-11-12] MEDS: CEFEPIME 2 GM VIAL IV SCH ×2 (00:46→09:44)
[2018-11-12] MEDS: hydrALAZINE 20 MG/ML VIAL IV PRN (04:18)
[2018-11-12] MEDS: 0.9 % SODIUM CHLORIDE 10 ML SYRINGE IV SCH ×3 (05:45→21:20)
[2018-11-12 06:36] LABS: ALT/SGPT 37 U/l (0-40); Albumin 3.1 gm/dL (3.2-5.2); Albumin/Globulin Ratio 1.3 (1.0-2.3); Alkaline Phosphatase 47 U/L (39-117); Basophils # (Auto) 0 K/mcL (0.0-0.3); Basophils % (Auto) 0 % (0.0-2.0); Bilirubin,Direct < 0.2 mg/dL (0.0-0.3); Blood Urea Nitrogen 11 mg/dl (8-23); Eosinophils # (Auto) 0.1 K/mcL (0.0-0.7); Eosinophils % (Auto) 0.4 % (0.0-7.0); Gamma Glutamyl Transpeptidase 14 U/L (8-61); Granulocytes % (Auto) 53.3 % (38.0-78.0); Lymphocytes # (Auto) 10.6 K/mcL (1.5-4.8); Lymphocytes % (Auto) 41.1 % (15.5-49.0); Mean Cell Volume 97.1 fL (80.0-100.0); Mean Corpuscular HGB Conc 34.3 g/dL (31.0-36.0); Monocytes # (Auto) 1.3 K/mcL (0.1-0.9); Monocytes % (Auto) 5.2 % (1.0-12.0); Platelet Count 523 K/mcL (140-440); RBC 2.92 M/mcL (4.50-5.90); Red Cell Distribution Width 11.9 % (11.5-14.5); Uric Acid 2.7 mg/dL (2.5-8.0)
[2018-11-12] MEDS: FLUTICASONE PROPIONATE SPRAY.NAS NS SCH (07:28)
[2018-11-12] MEDS ORDERED: FUROSEMIDE 20 MG/2 ML VIAL IV ONE (08:30)
[2018-11-12] MEDS: IMATINIB MESYLATE 400 MG PO SCH (09:39)
[2018-11-12] MEDS: LISINOPRIL 10 MG TABLET PO SCH (09:40)
[2018-11-12] MEDS: LEVOTHYROXINE 125 MCG TABLET PO SCH (09:41)
[2018-11-12] MEDS: ENOXAPARIN 40 MG/0.4 ML SYRINGE SQ SCH (09:41)
[2018-11-12] MEDS: OSELTAMIVIR PHOSPHATE 75 MG CAPSULE PO SCH ×2 (09:44→21:19)
[2018-11-12] MEDS: SODIUM CHLORIDE 1 GM TABLET PO SCH ×3 (09:44→21:19)
[2018-11-12] MEDS: METOPROLOL TARTRATE 25 MG TABLET PO SCH ×2 (11:24→21:20)
[2018-11-12] MEDS ORDERED: DILTIAZEM 25 MG/5 ML VIAL IV ONE ×2 (11:32→11:45)
--- NOTE | 2018-11-12 13:33 | Internal Med Progress Note ---
Medical - PN: Subj Patient information: Note initiated : 11/12/18 at 1:30 pm Service Date, if different from initiated Date: [] Patient: Frederick Arredondo a 82 y/o M admitted on 11/09/18 for cough/cold. Chief Complaint: [] Interval history: Mr. Arredondo is a 82 year old M With a 2-day history of weakness fatigue malaise productive cough of yellow sputum mild headaches with a T-max of 100.9 per his . Was recently at walk-in clinic and was diagnosed with upper respiratory tract infection sent home with Mucinex. Patient feels his symptoms have not improved. Per his he has poor oral intake and per the patient he says his urination has decreased slightly. Denies any chest pain or shortness of breath He has history of hypothyroidism was on medication years ago and then was stopped for a few years and then he was started back up by his primary care provider Dr. Serrano several months ago, with levothyroxine. He was also started on a blood pressure medication several months ago, lisinopril hydrochlorothiazide. 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 In the ED he was found to have leukocytosis, mildly elevated pro-calcitonin. Chest x-ray with questionable infiltrate. And is also found to have a sodium of 117. 11/10 12. No overnight events. Has productive cough. Denies dyspnea. Monitoring sodium closely. 11/11 Pt seen examined, no acute issues, still feels quite weak, around 10-20 percent better since admissin sodium level stable, improving slowly, repeat labs this afternoon. repeat CXR , damien crackles noted one xam today pt educated regarding pulm toilet, incentive spirometery. 11/12 Patient seen examined, Patient has no acute complaints or concerns. Feels a bit better compared to previous days. This morning he woke up with good amounts of energy however later became tired. On telemetry strip it was noted that the patient has developed new onset atrial fibrillation. TSH has been normal Patient has no chest complaints no chest pain does have shortness of breath. Echo has been ordered, given the patient's age and history of hypertension, patient would benefit from use of anticoagulation. Given his advanced age I am starting him on a lower dose of Eliquis 2.5 mg twice a day. I reviewed the need for this medication educated the patient about his risks including risk of GI bleed intracerebral hemorrhage and patient and his verbalized understanding of the risks and agreed for the treatment. Started the patient on metoprolol 25 mg twice a day for rate control \Blood cultures and sputum cultures are negative however patient's urine strep antigen is positive we will discontinue cefepime and start the patient on Rocephin Pertinent ROS: Denies headache, dizziness Denies chest pain, palpitations Improving cough and shortness of breath Denies abdominal pain, nausea or vomiting. - Constitutional Vitals: Vital Signs Temp Pulse Resp BP Pulse Ox 97.2 F 89 18 135/72 97 11/12/18 12:00 11/12/18 08:00 11/12/18 12:00 11/12/18 12:00 11/12/18 12:00 Period Temp Pulse Resp BP Sys/Oquendo Pulse Ox Last 24 Hr 97.1 F-99.7 F 76-89 16-18 135-161/66-72 96-99 Intake and Output 11/11/18 11/12/18 11/12/18 21:59 05:59 13:59 Intake Total 600 1240 Output Total 816 938 2527 Balance -250 -650 -10 Weight 202 lb Intake & Output: Intake & Output 11/11/18 11/12/18 11/12/18 21:59 05:59 13:59 Intake Total 600 1240 Output Total 931 365 1414 Balance -250 -650 -10 Weight 202 lb Intake: IV 300 1000 Oral 300 240 Output: Void Amount 150 613 0086 Emesis 150 Other: Meal Dinner Breakfast Percent of Meal Consumed 100% 40 Feeding Ability Assist with Tray Set Up Assist with Tray Set Up Urine Appearance Clear Clear Urine Color Dark Yellow Bright Yellow Bright Yellow Urine Odor Normal Normal Normal # Voids 2 Exam: Constitutional; Afebrile, cooperative, alert, not in distress. Respiratory system:air entry bilaterally equal, right basilar rales, much improved crackles CVS- Rate tachycardic rhythm irregular, S1,S2 heard, no gallop, no rub. Abdomen- Soft nontender abdomen, no organomegaly, no tenderness, no guarding or rigidity, [employer] SUPERVISOR- AOOx3, moving all extremities, no gross focal deficit noted. Medical - PN: Obj Da - Labs CBC & Chem 7: 11/12/18 03:30 03/20/19 03:30 Labs: Abnormal Lab Results 11/12/18 11/12/18 11/11/18 03:30 03:30 20:57 WBC 25.9 H RBC 2.92 L Hgb 9.7 L Hct 28.3 L MCV Plt Count 523 H Gran # 13.9 H Lymph # (Auto) 10.6 H [place] # (Auto) 1.3 H Seg Neutrophils % Lymphocytes % ESR Sodium 123 L 122 L Chloride 89 L 87 L Carbon Dioxide Glucose 144 H 162 H Osmolality Calcium 8.3 L 8.3 L Phosphorus 2.4 L Total Bilirubin AST 51 H Lactate Dehydrogenase 347 H C-Reactive Protein Total Protein 5.4 L Albumin 3.1 L Globulin Urine Ketones Urine Urobilinogen Urine RBC Ur Squamous Epith Cells Amorphous Crystals Urine Bacteria Urine Mucus Ur Strep pneumoniae Ag 11/11/18 11/11/18 11/11/18 14:15 03:30 03:30 WBC 19.7 H RBC 2.83 L Hgb 9.2 L Hct 28.4 L MCV 100.3 H Plt Count Gran # 11.6 H Lymph # (Auto) 7.0 H [place] # (Auto) 1.0 H Seg Neutrophils % Lymphocytes % ESR Sodium 120 L 124 L Chloride 88 L 89 L Carbon Dioxide 20 L 21 L Glucose 178 H 129 H Osmolality Calcium 8.1 L 7.7 L Phosphorus 2.2 L Total Bilirubin AST 51 H Lactate Dehydrogenase 403 H C-Reactive Protein Total Protein 4.9 L Albumin 2.8 L Globulin 2.1 L Urine Ketones Urine Urobilinogen Urine RBC Ur Squamous Epith Cells Amorphous Crystals Urine Bacteria Urine Mucus Ur Strep pneumoniae Ag 11/10/18 11/10/18 11/10/18 18:06 13:15 09:08 WBC RBC Hgb Hct MCV Plt Count Gran # Lymph # (Auto) [place] # (Auto) Seg Neutrophils % Lymphocytes % ESR Sodium 123 L 124 L 123 L Chloride 89 L 90 L 90 L Carbon Dioxide Glucose 163 H 138 H 172 H Osmolality Calcium 7.7 L 7.8 L 7.7 L Phosphorus Total Bilirubin AST Lactate Dehydrogenase C-Reactive Protein Total Protein Albumin Globulin Urine Ketones Urine Urobilinogen Urine RBC Ur Squamous Epith Cells Amorphous Crystals Urine Bacteria Urine Mucus Ur Strep pneumoniae Ag 11/10/18 11/10/18 11/09/18 03:19 03:19 23:13 WBC 25.3 H RBC 2.99 L Hgb 9.8 L Hct 29.6 L MCV Plt Count Gran # 17.3 H Lymph # (Auto) 6.8 H [place] # (Auto) 1.2 H Seg Neutrophils % Lymphocytes % ESR Sodium 123 L 120 L Chloride 89 L 86 L Carbon Dioxide Glucose 122 H 138 H Osmolality Calcium 7.6 L 7.3 L Phosphorus 2.2 L Total Bilirubin AST 58 H Lactate Dehydrogenase 287 H C-Reactive Protein 6.3 H Total Protein 4.9 L Albumin 2.8 L Globulin 2.1 L Urine Ketones Urine Urobilinogen Urine RBC Ur Squamous Epith Cells Amorphous Crystals Urine Bacteria Urine Mucus Ur Strep pneumoniae Ag 11/09/18 11/09/18 11/09/18 21:16 19:15 14:58 WBC RBC Hgb Hct MCV Plt Count Gran # Lymph # (Auto) [place] # (Auto) Seg Neutrophils % Lymphocytes % ESR Sodium 117 L* Chloride 83 L Carbon Dioxide 21 L Glucose 140 H Osmolality 243 L Calcium 7.8 L Phosphorus Total Bilirubin AST Lactate Dehydrogenase C-Reactive Protein Total Protein Albumin Globulin Urine Ketones Urine Urobilinogen Urine RBC Ur Squamous Epith Cells Amorphous Crystals Urine Bacteria Urine Mucus Ur Strep pneumoniae Ag Positive A 11/09/18 11/09/18 11/09/18 14:58 14:39 13:17 WBC RBC Hgb Hct MCV Plt Count Gran # Lymph # (Auto) [place] # (Auto) Seg Neutrophils % 80 H Lymphocytes % 14 L ESR Sodium Chloride Carbon Dioxide Glucose Osmolality Calcium Phosphorus 1.6 L Total Bilirubin AST Lactate Dehydrogenase C-Reactive Protein Total Protein Albumin Globulin Urine Ketones 15/1+ A Urine Urobilinogen 2.0 A Urine RBC 9 H Ur Squamous Epith Cells 20 H Amorphous Crystals Few A Urine Bacteria Few A Urine Mucus Many A Ur Strep pneumoniae Ag 11/09/18 11/09/18 11/09/18 13:17 13:17 13:17 WBC RBC Hgb Hct MCV Plt Count Gran # Lymph # (Auto) [place] # (Auto) Seg Neutrophils % Lymphocytes % ESR 24 H Sodium 117 L* Chloride 80 L Carbon Dioxide Glucose 152 H Osmolality Calcium 8.3 L Phosphorus Total Bilirubin 1.2 H AST 78 H Lactate Dehydrogenase C-Reactive Protein 7.5 H Total Protein Albumin Globulin Urine Ketones Urine Urobilinogen Urine RBC Ur Squamous Epith Cells Amorphous Crystals Urine Bacteria Urine Mucus Ur Strep pneumoniae Ag 11/09/18 13:17 WBC 27.1 H RBC 3.32 L Hgb 10.8 L Hct 32.9 L MCV Plt Count Gran # 20.4 H Lymph # (Auto) 5.8 H [place] # (Auto) 1.0 H Seg Neutrophils % Lymphocytes % ESR Sodium Chloride Carbon Dioxide Glucose Osmolality Calcium Phosphorus Total Bilirubin AST Lactate Dehydrogenase C-Reactive Protein Total Protein Albumin Globulin Urine Ketones Urine Urobilinogen Urine RBC Ur Squamous Epith Cells Amorphous Crystals Urine Bacteria Urine Mucus Ur Strep pneumoniae Ag Meds: Medications Acetaminophen (Tylenol) 650 mg PO Q6HP PRN PRN Reason: PAIN/FEVER > 101 Last Admin: 11/09/18 21:41 Dose: 650 mg Documented by: Albuterol/Ipratropium (Duoneb) 3 ml NEB Q4HP PRN PRN Reason: Shortness Of Breath Apixaban (Eliquis) 2.5 mg PO BID [facility] Fluticasone Propionate (Flonase) 2 spray NS QDAY [facility] Last Admin: 11/12/18 07:28 Dose: Not Given Documented by: Hydralazine HCl (Apresoline) 0 mg IV Q4-6HP PRN PRN Reason: Hypertension Last Admin: 11/12/18 04:18 Dose: 10 mg Documented by: Potassium Chloride 40 meq/ (Dextrose) 520 mls @ 130 mls/hr IV ONCE PRN PRN Reason: Potassium < 3 Magnesium Sulfate (Magnesium Sulfate) 2 gm in 50 mls @ 50 mls/hr IV ONCE PRN PRN Reason: Magnesium </= 1.6 Levothyroxine Sodium (Synthroid) 125 mcg PO QAMAC [facility] Last Admin: 11/12/18 09:41 Dose: 125 mcg Documented by: Lisinopril (Zestril) 20 mg PO DAILY [facility] Last Admin: 11/12/18 09:40 Dose: 20 mg Documented by: Metoprolol Tartrate (Lopressor) 25 mg PO BID [facility] Last Admin: 11/12/18 11:24 Dose: 25 mg Documented by: Ondansetron HCl (Zofran) 4 mg IV Q4HP PRN PRN Reason: Nausea And Vomiting Last Admin: 11/12/18 11:59 Dose: 4 mg Documented by: Oseltamivir Phosphate (Tamiflu) 75 mg PO BID [facility] Last Admin: 11/12/18 09:44 Dose: 75 mg Documented by: Imatinib Mesylate [ (Gleevec] 400 Mg Cap) 1.5 dose PO DAILY [facility] Last Admin: 11/12/18 09:39 Dose: 1.5 dose Documented by: Polyethylene Glycol (Miralax) 17 gm PO DAILYP PRN PRN Reason: Constipation Potassium Chloride (Kdur) 40 meq PO ONCE PRN PRN Reason: Potssium is 3-3.5 Potassium Chloride (Kdur) 40 meq PO ONCE PRN PRN Reason: Potassium < 3 Prochlorperazine (Compazine) 10 mg IV Q6HP PRN PRN Reason: Nausea And Vomiting Sodium Chloride (Saline Flush) 10 ml IV Q8 [facility] Last Admin: 11/12/18 12:01 Dose: 10 ml Documented by: Sodium Chloride (Sodium Chloride) 2 gm PO TID [facility] Last Admin: 11/12/18 09:44 Dose: 2 gm Documented by: Medical - PN: A/P - Time Spent With Patient Total time spent is greater than 50% in coordination of care (as documented) at patient's floor/unit and/or counseling patient: - Narrative A/P Narrative: A: *Secondary Bacterial PNA: 2/2 Influenza A, strep pneumonia -PCT improving *Influenza A: *Hyponatremia: Secondary to likely hydrochlorothiazide and poor oral intake *Gen weakness: *CML: follows with Dr. Cason on gleevec, resume gleevec *HTN: Recently started on combination of lisinopril and hydrochlorothiazide -Elevated on admit *Hypothyroidism: *Chronic anemia: Atrial fibrillation new onset, with RVR * P: -Tamiflu -s/p zithromax, d/c cefepime, start on rochepin -pending SC/BC, neg growth so far, -oral salt tablets tid, iv lasix, sodium improving gradually 123 today. -Serial sodium levels -Continue lisinopril (increase), as needed IV medication. Stopped hydrochlorothiazide -IV cardizem x 1, start on metoprolol and eliquis OT/PT eval -continue to monitor on tele given new onset Afib. -ppx: Lovenox Medical - PN: Qual - VTE Deep Vein Thrombosis/Pulmonary Embolism Present on Admission: No
[2018-11-12] MEDS: cefTRIAXone 2 GM in DEXTROSE 5% IN WATER 50 ML IV SCH (14:00)
[2018-11-12 17:58] LABS: Blood Urea Nitrogen 13 mg/dl (8-23)
[2018-11-12] MEDS ORDERED: POTASSIUM CHLORIDE 20 MEQ PACKET PO ONE (18:43)
[2018-11-12] MEDS: APIXABAN 2.5 MG TABLET PO SCH (21:20)
[2018-11-13] MEDS: 0.9 % SODIUM CHLORIDE 10 ML SYRINGE IV SCH ×3 (05:36→22:23)
[2018-11-13 07:11] LABS: Basophils # (Auto) 0 K/mcL (0.0-0.3); Basophils % (Auto) 0.2 % (0.0-2.0); Eosinophils # (Auto) 0.2 K/mcL (0.0-0.7); Eosinophils % (Auto) 0.8 % (0.0-7.0); Granulocytes % (Auto) 49.3 % (38.0-78.0); Lymphocytes # (Auto) 8.7 K/mcL (1.5-4.8); Mean Corpuscular HGB Conc 32.6 g/dL (31.0-36.0); Monocytes # (Auto) 0.9 K/mcL (0.1-0.9); Monocytes % (Auto) 4.7 % (1.0-12.0); Platelet Count 460 K/mcL (140-440); RBC 2.65 M/mcL (4.50-5.90); Red Cell Distribution Width 12.6 % (11.5-14.5)
[2018-11-13 07:58] LABS: ALT/SGPT 35 U/l (0-40); Albumin 2.9 gm/dL (3.2-5.2); Albumin/Globulin Ratio 1.4 (1.0-2.3); Alkaline Phosphatase 42 U/L (39-117); Bilirubin,Direct < 0.2 mg/dL (0.0-0.3); Blood Urea Nitrogen 15 mg/dl (8-23); Gamma Glutamyl Transpeptidase 10 U/L (8-61); Uric Acid 2.7 mg/dL (2.5-8.0)
[2018-11-13] MEDS: LEVOTHYROXINE 125 MCG TABLET PO SCH (08:12)
[2018-11-13] MEDS: OSELTAMIVIR PHOSPHATE 75 MG CAPSULE PO SCH ×2 (09:05→22:23)
[2018-11-13] MEDS: cefTRIAXone 2 GM in DEXTROSE 5% IN WATER 50 ML IV SCH (09:05)
[2018-11-13] MEDS: SODIUM CHLORIDE 1 GM TABLET PO SCH ×3 (09:05→22:23)
[2018-11-13] MEDS: APIXABAN 2.5 MG TABLET PO SCH ×2 (09:05→22:23)
[2018-11-13] MEDS: LISINOPRIL 10 MG TABLET PO SCH (09:05)
[2018-11-13] MEDS: IMATINIB MESYLATE 400 MG PO SCH (09:06)
[2018-11-13] MEDS: FLUTICASONE PROPIONATE SPRAY.NAS NS SCH (09:06)
[2018-11-13] MEDS: METOPROLOL TARTRATE 25 MG TABLET PO SCH ×2 (09:06→22:23)
--- NOTE | 2018-11-13 11:52 | Internal Med Progress Note ---
Medical - PN: Subj Patient information: Note initiated : 11/13/18 at 11:50 am Service Date, if different from initiated Date: [] Patient: Frederick Arredondo a 82 y/o M admitted on 11/09/18 for cough/cold. Chief Complaint: [] Interval history: Mr. Arredondo is a 82 year old M With a 2-day history of weakness fatigue malaise productive cough of yellow sputum mild headaches with a T-max of 100.9 per his . Was recently at walk-in clinic and was diagnosed with upper respiratory tract infection sent home with Mucinex. Patient feels his symptoms have not improved. Per his he has poor oral intake and per the patient he says his urination has decreased slightly. Denies any chest pain or shortness of breath He has history of hypothyroidism was on medication years ago and then was stopped for a few years and then he was started back up by his primary care provider Dr. Serrano several months ago, with levothyroxine. He was also started on a blood pressure medication several months ago, lisinopril hydrochlorothiazide. 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 In the ED he was found to have leukocytosis, mildly elevated pro-calcitonin. Chest x-ray with questionable infiltrate. And is also found to have a sodium of 117. 11/10 12. No overnight events. Has productive cough. Denies dyspnea. Monitoring sodium closely. 11/11 Pt seen examined, no acute issues, still feels quite weak, around 10-20 percent better since admissin sodium level stable, improving slowly, repeat labs this afternoon. repeat CXR , damien crackles noted one xam today pt educated regarding pulm toilet, incentive spirometery. 11/12 Patient seen examined, Patient has no acute complaints or concerns. Feels a bit better compared to previous days. This morning he woke up with good amounts of energy however later became tired. On telemetry strip it was noted that the patient has developed new onset atrial fibrillation. TSH has been normal Patient has no chest complaints no chest pain does have shortness of breath. Echo has been ordered, given the patient's age and history of hypertension, patient would benefit from use of anticoagulation. Given his advanced age I am starting him on a lower dose of Eliquis 2.5 mg twice a day. I reviewed the need for this medication educated the patient about his risks including risk of GI bleed intracerebral hemorrhage and patient and his verbalized understanding of the risks and agreed for the treatment. Started the patient on metoprolol 25 mg twice a day for rate control \Blood cultures and sputum cultures are negative however patient's urine strep antigen is positive we will discontinue cefepime and start the patient on Rocephin 11/13 Patient seen and examined, no acute overnight events or concerns. Heart rate now back to baseline. Feels great sodium level is 128. Transfer to [facility] status Anticipate discharge home tomorrow Pertinent ROS: Denies headache, dizziness Denies chest pain, palpitations Denies cough or shortness of breath Denies abdominal pain, nausea or vomiting. - Constitutional Vitals: Vital Signs Temp Pulse Resp BP Pulse Ox 98.3 F 83 18 143/65 93 11/13/18 06:53 11/13/18 06:53 11/13/18 06:53 11/13/18 06:53 11/13/18 07:01 Period Temp Pulse Resp BP Sys/Oquendo Pulse Ox Last 24 Hr 97.2 F-99.7 F 68-83 16-18 121-151/51-72 93-98 Intake and Output 11/12/18 11/13/18 11/13/18 21:59 05:59 13:59 Intake Total 510 450 Output Total 875 150 400 Balance -365 -150 50 Weight 201 lb Intake & Output: Intake & Output 11/12/18 11/13/18 11/13/18 21:59 05:59 13:59 Intake Total 510 450 Output Total 875 150 400 Balance -365 -150 50 Weight 201 lb Intake: IV 50 Rocephin 2 gm In Dextrose 5% in 50 Water 50 ml @ 100 mls/hr IV Q24H [facility] Rx#:[id number] Oral 460 450 Output: Void Amount 875 150 400 Other: Meal icecream Breakfast Percent of Meal Consumed 100% 100% Feeding Ability Assist with Tray Set Up Urine Color Light Ashly Dark Yellow Urine Odor Foul Exam: Constitutional; Afebrile, cooperative, alert, not in distress. Respiratory system: Air Entry equal on both sides, No crackles or wheezing, no rhonchi. CVS- Rate rhythm regular, S1,S2 heard, no gallop, no rub. Abdomen- Soft nontender abdomen, no organomegaly, no tenderness, no guarding or rigidity, [employer]- AOOx3, moving all extremities, no gross focal deficit noted. Medical - PN: Obj Da - Labs CBC & Chem 7: 11/13/18 03:30 11/13/18 03:30 Labs: Abnormal Lab Results 11/13/18 11/13/18 11/12/18 03:30 03:30 17:03 WBC 19.2 H RBC 2.65 L Hgb 8.6 L Hct 26.3 L MCV Plt Count 460 H Gran # 9.5 H Lymph # (Auto) 8.7 H [place] # (Auto) Sodium 128 L 124 L Chloride 91 L 88 L Carbon Dioxide Glucose 117 H 168 H Calcium 8.0 L 8.4 L Phosphorus AST 39 H Lactate Dehydrogenase 313 H Total Protein 5.0 L Albumin 2.9 L Globulin 2.1 L Triglycerides 197 H Ur Strep pneumoniae Ag 11/12/18 11/12/18 11/11/18 03:30 03:30 20:57 WBC 25.9 H RBC 2.92 L Hgb 9.7 L Hct 28.3 L MCV Plt Count 523 H Gran # 13.9 H Lymph # (Auto) 10.6 H [place] # (Auto) 1.3 H Sodium 123 L 122 L Chloride 89 L 87 L Carbon Dioxide Glucose 144 H 162 H Calcium 8.3 L 8.3 L Phosphorus 2.4 L AST 51 H Lactate Dehydrogenase 347 H Total Protein 5.4 L Albumin 3.1 L Globulin Triglycerides Ur Strep pneumoniae Ag 11/11/18 11/11/18 11/11/18 14:15 03:30 03:30 WBC 19.7 H RBC 2.83 L Hgb 9.2 L Hct 28.4 L MCV 100.3 H Plt Count Gran # 11.6 H Lymph # (Auto) 7.0 H [place] # (Auto) 1.0 H Sodium 120 L 124 L Chloride 88 L 89 L Carbon Dioxide 20 L 21 L Glucose 178 H 129 H Calcium 8.1 L 7.7 L Phosphorus 2.2 L AST 51 H Lactate Dehydrogenase 403 H Total Protein 4.9 L Albumin 2.8 L Globulin 2.1 L Triglycerides Ur Strep pneumoniae Ag 11/10/18 11/10/18 11/09/18 18:06 13:15 21:16 WBC RBC Hgb Hct MCV Plt Count Gran # Lymph # (Auto) [place] # (Auto) Sodium 123 L 124 L Chloride 89 L 90 L Carbon Dioxide Glucose 163 H 138 H Calcium 7.7 L 7.8 L Phosphorus AST Lactate Dehydrogenase Total Protein Albumin Globulin Triglycerides Ur Strep pneumoniae Ag Positive A Meds: Medications Acetaminophen (Tylenol) 650 mg PO Q6HP PRN PRN Reason: PAIN/FEVER > 101 Last Admin: 11/09/18 21:41 Dose: 650 mg Documented by: Albuterol/Ipratropium (Duoneb) 3 ml NEB Q4HP PRN PRN Reason: Shortness Of Breath Apixaban (Eliquis) 2.5 mg PO BID [facility] Last Admin: 11/13/18 09:05 Dose: 2.5 mg Documented by: Fluticasone Propionate (Flonase) 2 spray NS QDAY [facility] Last Admin: 11/13/18 09:06 Dose: Not Given Documented by: Hydralazine HCl (Apresoline) 0 mg IV Q4-6HP PRN PRN Reason: Hypertension Last Admin: 11/12/18 04:18 Dose: 10 mg Documented by: Potassium Chloride 40 meq/ (Dextrose) 520 mls @ 130 mls/hr IV ONCE PRN PRN Reason: Potassium < 3 Magnesium Sulfate (Magnesium Sulfate) 2 gm in 50 mls @ 50 mls/hr IV ONCE PRN PRN Reason: Magnesium </= 1.6 Ceftriaxone Sodium 2 gm/ (Dextrose) 50 mls @ 100 mls/hr IV Q24H [facility]; Protocol Last Admin: 11/13/18 09:05 Dose: 100 mls/hr Documented by: Levothyroxine Sodium (Synthroid) 125 mcg PO QAMAC [facility] Last Admin: 11/13/18 08:12 Dose: 125 mcg Documented by: Lisinopril (Zestril) 20 mg PO DAILY [facility] Last Admin: 11/13/18 09:05 Dose: 20 mg Documented by: Metoprolol Tartrate (Lopressor) 25 mg PO BID [facility] Last Admin: 11/13/18 09:06 Dose: 25 mg Documented by: Ondansetron HCl (Zofran) 4 mg IV Q4HP PRN PRN Reason: Nausea And Vomiting Last Admin: 11/12/18 11:59 Dose: 4 mg Documented by: Oseltamivir Phosphate (Tamiflu) 75 mg PO BID [facility] Last Admin: 11/13/18 09:05 Dose: 75 mg Documented by: Imatinib Mesylate [ (Gleevec] 400 Mg Cap) 1.5 dose PO DAILY [facility] Last Admin: 11/13/18 09:06 Dose: 1.5 dose Documented by: Polyethylene Glycol (Miralax) 17 gm PO DAILYP PRN PRN Reason: Constipation Potassium Chloride (Kdur) 40 meq PO ONCE PRN PRN Reason: Potssium is 3-3.5 Potassium Chloride (Kdur) 40 meq PO ONCE PRN PRN Reason: Potassium < 3 Prochlorperazine (Compazine) 10 mg IV Q6HP PRN PRN Reason: Nausea And Vomiting Sodium Chloride (Saline Flush) 10 ml IV Q8 [facility] Last Admin: 11/13/18 05:36 Dose: 10 ml Documented by: Sodium Chloride (Sodium Chloride) 2 gm PO TID [facility] Last Admin: 11/13/18 09:05 Dose: 2 gm Documented by: Medical - PN: A/P - Time Spent With Patient Total time spent is greater than 50% in coordination of care (as documented) at patient's floor/unit and/or counseling patient: - Narrative A/P Narrative: A: *Secondary Bacterial PNA: 2/2 Influenza A, strep pneumonia -PCT improving *Influenza A: *Hyponatremia: Secondary to likely hydrochlorothiazide and poor oral intake *Gen weakness: *CML: follows with Dr. Cason on gleevec, resume gleevec *HTN: Recently started on combination of lisinopril and hydrochlorothiazide -Elevated on admit *Hypothyroidism: *Chronic anemia: Atrial fibrillation new onset, with RVR * P: -Tamiflu -s/p zithromax, d/c cefepime, started on rochepin -pending SC/BC, neg growth so far, -oral salt tablets tid, iv lasix, sodium improving gradually 128 today. -Serial sodium levels -Continue lisinopril (increase), as needed IV medication. Stopped hydrochlorothiazide -IV cardizem x 1, start on metoprolol and eliquis OT/PT eval -continue on metoprolol and eliquis. xfer to med surg status -ppx: Lovenox Medical - PN: Qual - VTE Deep Vein Thrombosis/Pulmonary Embolism Present on Admission: No
[2018-11-13] MEDS ORDERED: FUROSEMIDE 20 MG/2 ML VIAL IV ONE (11:55)
[2018-11-13] MEDS ORDERED: ONDANSETRON 4 MG/2 ML VIAL IV PRN (12:45)
[2018-11-13] MEDS ORDERED: POLYETHYLENE GLYCOL 3350 17 GM PACKET PO PRN (12:45)
[2018-11-13] MEDS ORDERED: POTASSIUM CHLORIDE 40 MEQ in DEXTROSE 5% IN WATER 500 ML IV PRN (12:45)
[2018-11-13] MEDS ORDERED: POTASSIUM CHLORIDE 20 MEQ TABLET PO PRN ×2 (12:45)
[2018-11-13] MEDS ORDERED: hydrALAZINE 20 MG/ML VIAL IV PRN (12:45)
[2018-11-13] MEDS ORDERED: PROCHLORPERAZINE 10 MG/2 ML VIAL IV PRN (12:45)
[2018-11-13] MEDS ORDERED: IPRATROPIUM/ALBUTEROL 3 ML AMPUL.NEB NEB PRN (12:45)
[2018-11-13] MEDS ORDERED: MAGNESIUM SULFATE 2 GM/50 ML BAG IV PRN (12:45)
[2018-11-13] MEDS ORDERED: ACETAMINOPHEN 325 MG TABLET PO PRN (12:45)
[2018-11-14] MEDS: 0.9 % SODIUM CHLORIDE 10 ML SYRINGE IV SCH (06:03)
[2018-11-14 06:44] LABS: Basophils # (Auto) 0 K/mcL (0.0-0.3); Basophils % (Auto) 0.3 % (0.0-2.0); Eosinophils # (Auto) 0.1 K/mcL (0.0-0.7); Eosinophils % (Auto) 0.4 % (0.0-7.0); Granulocytes % (Auto) 45.3 % (38.0-78.0); Lymphocytes % (Auto) 50.5 % (15.5-49.0); Mean Cell Volume 99.9 fL (80.0-100.0); Mean Corpuscular HGB Conc 32.2 g/dL (31.0-36.0); Monocytes # (Auto) 0.6 K/mcL (0.1-0.9); Monocytes % (Auto) 3.5 % (1.0-12.0); Platelet Count 486 K/mcL (140-440)
[2018-11-14 07:16] LABS: ALT/SGPT 33 U/l (0-40); Albumin 2.8 gm/dL (3.2-5.2); Albumin/Globulin Ratio 1.3 (1.0-2.3); Alkaline Phosphatase 43 U/L (39-117); Bilirubin,Direct < 0.2 mg/dL (0.0-0.3); Blood Urea Nitrogen 20 mg/dl (8-23); Gamma Glutamyl Transpeptidase 11 U/L (8-61); Uric Acid 3.2 mg/dL (2.5-8.0)
[2018-11-14] MEDS ORDERED: LEVOTHYROXINE 125 MCG TABLET PO SCH (07:30)
[2018-11-14] MEDS ORDERED: cefTRIAXone 2 GM VIAL ONE (07:35)
[2018-11-14] MEDS: SODIUM CHLORIDE 1 GM TABLET PO SCH (07:44)
[2018-11-14] MEDS: OSELTAMIVIR PHOSPHATE 75 MG CAPSULE PO SCH (07:44)
[2018-11-14] MEDS: METOPROLOL TARTRATE 25 MG TABLET PO SCH (07:45)
[2018-11-14] MEDS: APIXABAN 2.5 MG TABLET PO SCH (07:45)
[2018-11-14] MEDS ORDERED: LISINOPRIL 10 MG TABLET PO SCH (09:00)
[2018-11-14] MEDS ORDERED: FLUTICASONE PROPIONATE SPRAY.NAS NS SCH (09:00)
[2018-11-14] MEDS ORDERED: IMATINIB MESYLATE 400 MG PO SCH (09:00)
[2018-11-14] MEDS ORDERED: cefTRIAXone 2 GM in DEXTROSE 5% IN WATER 50 ML IV SCH (09:00)
--- NOTE | 2018-11-14 10:35 | Discharge Summary ---
Medical - DS: Prov Patient information: Note initiated : 11/14/18 at 10:32 am Service Date, if different from initiated Date: [] Patient: Frederick Arredondo 83 y/o M admitted on 11/09/18 for cough/cold. Chief Complaint: [] Date of admission: 11/09/18 16:32 Discharge date: 11/14/18 Primary care physician: Axel Serrano Consults: 11/09/18 14:21 Consult to Physician [CONS] Stat Comment: Consulting Provider: Serg Redd Reason For Exam: Physician to Consult Discharging clinician: Allyson Lozano Medical - DS: Meds - Discharge Medications Prescriptions: Apixaban [Eliquis] 2.5 mg PO BID #60 tab Cefdinir 300 mg PO BID #6 cap Lisinopril [Zestril] 20 mg PO DAILY #30 tab Metoprolol Tartrate [Lopressor] 25 mg PO BID #60 tab Oseltamivir Phosphate [Tamiflu] 75 mg PO BID #6 cap Sodium Chloride 1 gm PO TID #90 tab Active and Home Medications: Home Medications Imatinib Mesylate [Gleevec] 600 mg PO DAILY 08/09/17 [History Confirmed 11/09/18 Last Taken 08/08/17] fluticasone propionate 50 mcg/actuation nasal spray,suspension 2 spray INTRANASAL QDAY 11/01/18 [History Confirmed 11/09/18 Last Taken Unknown] levothyroxine 125 mcg capsule 125 mcg PO QDAY 11/01/18 [History Confirmed 11/09/18 Last Taken Unknown] lisinopril 10 mg-hydrochlorothiazide 12.5 mg tablet 1 tab PO QDAY 11/01/18 [History Confirmed 11/09/18 Last Taken Unknown] Medical - DS: Hosp Hospital course: Mr. Arredondo is a 82 year old M With a 2-day history of weakness fatigue malaise productive cough of yellow sputum mild headaches with a T-max of 100.9 per his . Was recently at walk-in clinic and was diagnosed with upper respiratory tract infection sent home with Mucinex. Patient feels his symptoms have not improved. Per his he has poor oral intake and per the patient he says his urination has decreased slightly. Denies any chest pain or shortness of breath He has history of hypothyroidism was on medication years ago and then was stopped for a few years and then he was started back up by his primary care provider Dr. Serrano several months ago, with levothyroxine. He was also started on a blood pressure medication several months ago, lisinopril hydrochlorothiazide. 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 In the ED he was found to have leukocytosis, mildly elevated pro-calcitonin. Chest x-ray with questionable infiltrate. And is also found to have a sodium of 117. 11/10 12. No overnight events. Has productive cough. Denies dyspnea. Monitoring sodium closely. 11/11 Pt seen examined, no acute issues, still feels quite weak, around 10-20 percent better since admissin sodium level stable, improving slowly, repeat labs this afternoon. repeat CXR , damien crackles noted one xam today pt educated regarding pulm toilet, incentive spirometery. 11/12 Patient seen examined, Patient has no acute complaints or concerns. Feels a bit better compared to previous days. This morning he woke up with good amounts of energy however later became tired. On telemetry strip it was noted that the patient has developed new onset atrial fibrillation. TSH has been normal Patient has no chest complaints no chest pain does have shortness of breath. Echo has been ordered, given the patient's age and history of hypertension, patient would benefit from use of anticoagulation. Given his advanced age I am starting him on a lower dose of Eliquis 2.5 mg twice a day. I reviewed the need for this medication educated the patient about his risks including risk of GI bleed intracerebral hemorrhage and patient and his verbalized understanding of the risks and agreed for the treatment. Started the patient on metoprolol 25 mg twice a day for rate control \Blood cultures and sputum cultures are negative however patient's urine strep antigen is positive we will discontinue cefepime and start the patient on Rocephin 11/13 Patient seen and examined, no acute overnight events or concerns. Heart rate now back to baseline. Feels great sodium level is 128. Transfer to [facility] status Anticipate discharge home tomorrow 11/14 pt seen examined no acute issues, tolerating po diet well, good strength, able to move around without any issues sodium level > 130 stable for discharge In Summary Patient admitted to hospital with hyponatremia (secondary to hctz ? siadh), influenza pneuonia, urine strep test positive. Treated with IVF, tamiflu and antibiotics, responded to treatment well will discahrge on sodium tablets 1gm tid, and fluid restriction, Tamiflu and cefdinir for pneumonia. He will not take the lisinopril-hctz, but only lisinopril for his bp PCP to check sodium level in 1 week and decide if salt tablets are needed and make further changes to his treatment regime. patient developed afib with RVR during the hospital stay, patient was treated with metoprolol, and sats are 90 coagulation Eliquis, I am starting low-dose Eliquis 2.5 mg twice a day. Echocardiogram was done shows normal LV size, LVH present, normal LV function. Discharge diagnosis: hyponatermia,influenza pneumonia, atrial fibrillation - Time Spent with Patient Total time spent providing and/or coordinating discharge services: Greater than 30 minutes Medical - DS: Exam - Constitutional Vitals: Vital Signs Temp Pulse Resp BP BP BP Pulse Ox 11/14/18 08:07 97.3 F 71 16 149/72 95 11/14/18 08:00 71 11/14/18 04:00 97.8 F 76 20 141/67 97 11/14/18 00:00 98.6 F 70 16 131/60 95 11/13/18 20:00 98.1 F 76 16 147/74 95 11/13/18 16:00 98.8 F 18 96 11/13/18 12:00 98.8 F 18 136/64 99 Intake and Output 11/13/18 11/14/18 11/14/18 21:59 05:59 13:59 Intake Total 300 520 Output Total 1200 Balance -1200 300 520 Intake: Oral 300 520 Output: Void Amount 1200 Other: Meal coffee Urine Color Dark Yellow # Voids 1 Weight 198 lb Additional comments: Constitutional; Afebrile, cooperative, alert, not in distress. Respiratory system: Air Entry equal on both sides, No crackles or wheezing, no rhonchi. CVS- Rate rhythm regular, S1,S2 heard, no gallop, no rub. Abdomen- Soft nontender abdomen, no organomegaly, no tenderness, no guarding or rigidity, [employer]- AOOx3, moving all extremities, no gross focal deficit noted. Medical - DS: Data Labs on day of discharge: Labs from last 24 hours 11/14/18 11/14/18 04:35 04:35 WBC 17.8 H RBC 2.70 L Hgb 8.7 L Hct 27.0 L MCV 99.9 MCH 32.2 MCHC 32.2 RDW 13.0 Plt Count 486 H MPV 8.7 Gran % 45.3 Lymph % (Auto) 50.5 H [place] % (Auto) 3.5 Eos % (Auto) 0.4 Baso % (Auto) 0.3 Gran # 8.1 H Lymph # (Auto) 9.0 H [place] # (Auto) 0.6 Eos # (Auto) 0.1 Baso # (Auto) 0 Sodium 131 L Potassium 3.7 Chloride 95 L Carbon Dioxide 25 Anion Gap 11.0 BUN 20 Creatinine 1.0 GFR Calculation 69 Glucose 118 H Uric Acid 3.2 Calcium 8.2 L Phosphorus 3.1 Magnesium 1.8 Total Bilirubin 0.7 Direct Bilirubin < 0.2 GGT 11 AST 33 ALT 33 Alkaline Phosphatase 43 Lactate Dehydrogenase 267 H Total Protein 5.0 L Albumin 2.8 L Globulin 2.2 Albumin/Globulin Ratio 1.3 Triglycerides 63 Preliminary micro results at discharge 11/09/18 14:58 Blood Culture - Preliminary Blood 11/09/18 14:46 Blood Culture - Preliminary Blood Medical - DS: A/P - Patient/Caregiver Discharge Instructions Activity: increase activity as tolerated Diet: Cardiac Additional Instructions: Please stop lisinopril -hctz, start on lisinopril 20mg once daily, You had influenzae pneumonia, Please take Tamiflu and Ceftin need for another 3 days, both are 1 tablet twice a day You had low sodium values, please take sodium tablets 1 tablet 3 times a day, please restrict your fluid intake to 1500 mL in 24 hours. Please follow-up with your primary care provider in 1 week, make sure your primary care provider checks her sodium level and adjust the dose of sodium tablets and your fluid restriction according to the lab work While in the hospital he developed atrial fibrillation, this is irregular heartbeat that can increase the risk of stroke, you have been started on a medication called metoprolol to control the heart rate. This tablet is 25 mg twice a day. He also been started on a blood thinner called Eliquis 2.5 mg twice a day. If you notice any blood in the stools uncontrolled bleeding from any site, black tarry stools please go to the emergency room for further evaluation - Follow up Plan Follow up with: Axel Serrano MD [Primary Care Provider] - Disposition: Home, Self-Care Prognosis: Fair Rehab Potential: Fair I certify that the patient requires SNF services: No Overall status at discharge: patient is progressing back to baseline Medical - DS: Qual - VTE Deep Vein Thrombosis/Pulmonary Embolism Present on Admission: No
== END 2018-11-14 11:55 | disposition home or self-care (01) | DRG 640 ==
LOC: ED 12:26 → ICU 16:32 → MEDSUR 11-13 17:30
PROVIDERS: ADMIT Internal Medicine; ATTEND Internal Medicine